=== PATIENT | male | born 1960 | race American Indian/Alaskan Native ===

== ENCOUNTER 2017-06-22 00:15 | Emergency (ER) | payer MEDICARE, MEDICAID ==
[2017-06-22 00:52] VITALS: BP 188/96
--- NOTE | 2017-06-22 01:28 | EDM.PDOC ---
ED HPI GENERAL MEDICAL PROBLEM - General Chief Complaint: Lower Extremity Injury/Pain Stated Complaint: RT KNEE SWOLLEN / NO INJURY Time Seen by Provider: 06/22/17 01:00 Source of Information: Reports: Patient History Limitations: Reports: No Limitations - History of Present Illness INITIAL COMMENTS - FREE TEXT/NARRATIVE: 57-year-old male with rheumatoid arthritis has an acute flare of his right knee for the past 48 hours. He is getting a lot of company for the hols and is interested in pain control for the next several days. He has no redness or fever. He is on 2.5 mg of prednisone daily and is scheduled for a consultation to start Remicade in 3 days. No specific injury. He has not had a prescription for narcotic medication in the past year. Tramadol has worked well for him in the past. Onset: Gradual (Over the past 48 hours) Severity: Moderate Associated Symptoms: Reports: No Other Symptoms Right Knee Pain Score (Numeric/FACES): 10 - Related Data Allergies Allergy/AdvReac Type Severity Reaction Status Date / Time No Known Allergies Allergy Verified 02/12/16 05:33 Home Meds: Home Meds Lisinopril [Lisinopril] 20 mg PO DAILY 06/22/17 [History] predniSONE [Prednisone] 2.5 mg PO DAILY 06/22/17 [History] Past Medical History Cardiovascular History: Reports: Hypertension Musculoskeletal History: Reports: RA Psychiatric History: Reports: Panic Attack - Past Surgical History GI Surgical History: Reports: Cholecystectomy Social & Family History - Tobacco Use Smoking Status *Q: Heavy Tobacco Smoker Years of Tobacco use: 30 Packs/Tins Daily: 0.5 Used Tobacco, but Quit: No Second Hand Smoke Exposure: No - Caffeine Use Caffeine Use: Reports: Coffee - Alcohol Use Days Per Week of Alcohol Use: 0 - Recreational Drug Use Recreational Drug Use: No Drug Use in Last 12 Months: Yes Recreational Drug Type: Reports: Marijuana/Hashish Recreational Drug Use Frequency: Weekly Recreational Drug Last Use: today 1800, had tramadol Review of Systems - Review of Systems Review Of Systems: See Below Constitutional: Denies: Fever Respiratory: Denies: Shortness of Breath, Cough Cardiovascular: Denies: Chest Pain Skin: Reports: No Symptoms Neurological: Reports: No Symptoms ED EXAM, GENERAL - Physical Exam Exam: See Below Exam Limited By: No Limitations General Appearance: Alert, No Apparent Distress Respiratory/Chest: No Respiratory Distress, Lungs Clear Extremities: Other (Patient has a significant effusion in the right knee. There is some tenderness to palpation along the medial and lateral joint lines and limitation of flexion of the knee. The joint is not red, warm, or inflamed) Neurological: Alert, Oriented Skin Exam: Warm, Dry Course - Vital Signs Last Recorded V/S: Last Vital Signs Temp 98.4 F 06/22/17 00:52 Pulse 83 06/22/17 00:52 Resp 18 06/22/17 00:52 BP 188/96 H 06/22/17 00:52 Pulse Ox 96 06/22/17 00:52 - Re-Assessments/Exams Free Text/Narrative Re-Assessment/Exam: 06/22/17 01:26 I offered the patient needle decompression of the joint space, he declined at this time but will return in 2-3 days if it's not responding to conservative therapy. He'll be placed on 40 mg of prednisone daily and given 30 tramadol to take through the next week. A six-inch Arnold wrap was applied around the knee. Departure - Departure Time of Disposition: 01:35 Disposition: Home, Self-Care 01 Condition: Good Clinical Impression: Effusion of knee joint right, Rheumatoid arthritis flare - Discharge Information Instructions: Knee Effusion, [id number] Referrals: PCP,None [Primary Care Provider] - Forms: ED Department Discharge Care Plan Goals: Take 40 mg of prednisone with your morning meal for the next 4-6 days. Use tramadol for extra pain control as prescribed and recheck in 2-3 days if not improving satisfactorily.
== END 2017-06-22 01:35 | disposition home or self-care (01) ==
LOC: JP.ED 00:15
DX: M06.861 Other specified rheumatoid arthritis, right knee (principal); M25.461 Effusion, right knee; I10 Essential (primary) hypertension; F17.210 Nicotine dependence, cigarettes, uncomplicated; Z79.899 Other long term (current) drug therapy
CPT/HCPCS: 99283

== ENCOUNTER 2018-04-02 14:35 | Emergency (ER) | payer MEDICARE, MEDICAID ==
--- NOTE | 2018-04-02 15:13 | EDM.PDOC ---
ED HPI GENERAL MEDICAL PROBLEM - General Chief Complaint: General Stated Complaint: VIA [facility] Time Seen by Provider: 04/02/18 14:45 Source of Information: Reports: Patient, EMS, Family History Limitations: Reports: No Limitations - History of Present Illness INITIAL COMMENTS - FREE TEXT/NARRATIVE: 57-year-old male with chronic rheumatoid arthritis or takes a large amount of Tylenol and ibuprofen has had biliary emesis for the past 2 days, epigastric pain, and had a syncopal episode this morning. He was taken into the local clinic where he was found to be jaundiced and had elevated liver enzymes so was transferred here. He's been given 1 L of fluid. He does not take illicit drugs or drink alcohol. He has some mild epigastric and upper abdominal pain but no other symptoms other than lightheadedness and fatigue, he feels like everything is moving "in slow motion". Onset: Gradual (Over the past 3-4 days) Severity: Moderate Associated Symptoms: Reports: Loss of Appetite, Malaise, Nausea/Vomiting, Weakness. Denies: Confusion, Chest Pain, Cough - Related Data Allergies Allergy/AdvReac Type Severity Reaction Status Date / Time No Known Allergies Allergy Verified 04/02/18 15:05 Home Meds: Home Meds NK [No Known Home Meds] 04/02/18 [History] Past Medical History Cardiovascular History: Reports: Hypertension Gastrointestinal History: Reports: GI Bleed, PUD Musculoskeletal History: Reports: RA Psychiatric History: Reports: Panic Attack - Past Surgical History GI Surgical History: Reports: Cholecystectomy Social & Family History - Tobacco Use Smoking Status *Q: Light Tobacco Smoker Years of Tobacco use: 33 Packs/Tins Daily: 0.5 - Caffeine Use Caffeine Use: Reports: Coffee - Recreational Drug Use Recreational Drug Use: Yes Recreational Drug Type: Reports: Marijuana/Hashish Recreational Drug Use Frequency: Daily ED ROS GENERAL - Review of Systems Review Of Systems: See Below Constitutional: Reports: Chills, Malaise, Weakness, Decreased Appetite. Denies : Fever HEENT: Reports: Other (Jaundiced eyes) Respiratory: Denies: Shortness of Breath, Cough Cardiovascular: Denies: Chest Pain GI/Abdominal: Reports: Abdominal Pain, Nausea, Vomiting : Reports: Other (Urine is dark). Denies: Dysuria, Frequency Skin: Reports: Jaundice Neurological: Reports: Dizziness, Weakness. Denies: Headache Psychiatric: Reports: No Symptoms ED EXAM, GENERAL - Physical Exam Exam: See Below Exam Limited By: No Limitations General Appearance: Alert, No Apparent Distress Eye Exam: Bilateral Eye: EOMI, Other (Significant bilateral scleral icterus) Head: Atraumatic Neck: Normal Inspection Respiratory/Chest: No Respiratory Distress, Lungs Clear Cardiovascular: Regular Rate, Rhythm GI/Abdominal: Soft, Tender (He does react with tenderness to palpation across the upper abdomen, especially the right side) Extremities: Other (He has a little bit of joint swelling from his chronic rheumatoid arthritis, no significant deformities). No: Pedal Edema Neurological: Alert, Oriented Psychiatric: Normal Affect, Normal Mood Skin Exam: Other (Jaundice) Course - Vital Signs Last Recorded V/S: Last Vital Signs Temp 97.8 F 04/02/18 17:29 Pulse 75 04/02/18 17:29 Resp 16 04/02/18 17:29 BP 153/75 H 04/02/18 17:29 Pulse Ox 96 04/02/18 17:29 - Orders/Labs/Meds Labs: Laboratory Tests 04/02/18 04/02/18 04/02/18 Range/Units 15:03 15:03 15:59 Total Bilirubin 6.3 H D (0.2-1.0) mg/dL Direct Bilirubin 5.27 H (0.0-0.2) mg/dL Amylase 29 D (25-115) U/L Lipase 73 (73-393) U/L Acetaminophen < 2.0 L (10.0-30.0) ug/mL Meds: Medications Discontinued Medications Generic Name Dose Route Start Last Admin Trade Name Aidenq PRN Reason Stop Dose Admin Sodium Chloride 80 mls @ 3.5 mls/sec 04/02/18 15:29 04/02/18 15:48 Normal Saline IV 04/02/18 15:30 3.5 mls/sec ONETIME ONE Administration Iopamidol 150 ml 04/02/18 15:30 04/02/18 15:47 Isovue-300 (61%) IV 132 ml . DIRECTED DUNCAN Administration Sodium Chloride 10 ml 04/02/18 15:29 04/02/18 16:14 Saline Flush FLUSH 04/02/18 15:30 10 ml ONETIME ONE Administration - Re-Assessments/Exams Free Text/Narrative Re-Assessment/Exam: 04/02/18 15:12 Labs were reviewed from the outside clinic, his AST and ALT are significantly elevated as well as his bilirubin. Lipase and amylase were not obtained nor was an acetaminophen level. Those were drawn. He thinks his gallbladder has been removed, so we will proceed with a CT scan with IV contrast initially. 04/02/18 15:57 Acetaminophen level is 0, amylase and lipase are negative. CT scan does not show any acute findings. There is a fatty liver present. I discussed the findings with the hospitalist service in [place] at [place], and Dr. Lee kindly accepted the patient for further evaluation and treatment. Patient will be taken by private car Departure - Departure Time of Disposition: 17:59 Disposition: DC/Tfer to Other 70 Condition: Fair Clinical Impression: Hepatitis, Jaundice Syncope Qualifiers: Syncope type: vasovagal syncope Qualified Code(s): R55 - Syncope and collapse - Discharge Information Instructions: Jaundice, Adult Referrals: PCP,None [Primary Care Provider] - Forms: ED Department Discharge Care Plan Goals: Patient will go directly to [facility] for admission for further workup for jaundice, hepatitis or possibly obstructive hyperbilirubinemia.
[2018-04-02] MEDS: Iopamidol 612 MG/ML 150 ML Bottle IV SCH (15:47)
[2018-04-02] MEDS: Sodium Chloride 0.9% 80 ML IV ONE (15:48)
[2018-04-02] MEDS: Sodium Chloride 0.9% 10 ML Syringe FLUSH ONE (16:14)
[2018-04-02 17:29] VITALS: BP 153/75
== END 2018-04-02 17:59 | disposition other institution (70) ==
LOC: JP.ED 14:35
DX: K75.9 Inflammatory liver disease, unspecified (principal); R55 Syncope and collapse; F17.210 Nicotine dependence, cigarettes, uncomplicated; I10 Essential (primary) hypertension
CPT/HCPCS: 36415; 74177; 82150; 82247; 82248; 83690; 99285; G0480; J7030; J7050

== ENCOUNTER 2018-09-12 15:36 | Emergency (ER) | payer MEDICARE, MEDICAID ==
[2018-09-12 16:07] VITALS: BP 188/104
--- NOTE | 2018-09-12 16:25 | EDM.PDOC ---
ED HPI GENERAL MEDICAL PROBLEM - General Chief Complaint: Lower Extremity Injury/Pain Stated Complaint: SCHRADER BITE 08/24 Time Seen by Provider: 09/12/18 16:19 Source of Information: Reports: Patient History Limitations: Reports: No Limitations - History of Present Illness INITIAL COMMENTS - FREE TEXT/NARRATIVE: pt got frostbite on the Aug. He has not seen a Dr since that time. He has had increased pain in the last 2 nite. Onset: Gradual Duration: Day(s): Location: Reports: Lower Extremity, Left, Lower Extremity, Right Associated Symptoms: Reports: No Other Symptoms (0) - Related Data Allergies Allergy/AdvReac Type Severity Reaction Status Date / Time No Known Allergies Allergy Verified 09/12/18 16:12 Home Meds: Home Meds NK [No Known Home Meds] 04/02/18 [History] Past Medical History Cardiovascular History: Reports: Hypertension Gastrointestinal History: Reports: GI Bleed, PUD Musculoskeletal History: Reports: RA Psychiatric History: Reports: Panic Attack - Past Surgical History GI Surgical History: Reports: Cholecystectomy Social & Family History - Tobacco Use Smoking Status *Q: Current Every Day Smoker Years of Tobacco use: 20 Packs/Tins Daily: 0.2 - Caffeine Use Caffeine Use: Reports: Coffee Review of Systems - Review of Systems Review Of Systems: See Below Constitutional: Reports: No Symptoms Eyes: Reports: No Symptoms Ears: Reports: No Symptoms Nose: Reports: No Symptoms Mouth/Throat: Reports: No Symptoms Respiratory: Reports: No Symptoms Cardiovascular: Reports: No Symptoms GI/Abdominal: Reports: No Symptoms Genitourinary: Reports: No Symptoms Musculoskeletal: Reports: Other (pt has frostbite to both feet. There is slight drainabe from the great toes. ) ED EXAM, GENERAL - Physical Exam Exam: See Below Free Text/Narrative:: pt got schrader bite on Aug 24. He has not seen a DR since that time. He now notes the toes are getting dark great and 2nd toe. This is occuring on both feet. The pain in the feet are much greater. Exam Limited By: No Limitations General Appearance: Alert, Anxious, Moderate Distress Ears: Normal External Exam Nose: Normal Inspection Throat/Mouth: Normal Inspection Head: Atraumatic Neck: Normal Inspection Respiratory/Chest: No Respiratory Distress Cardiovascular: Regular Rate, Rhythm GI/Abdominal: Soft, Non-Tender (Male) Exam: Deferred Rectal (Males) Exam: Deferred Back Exam: Normal Inspection Extremities: Other (pt has a dark toe on the left,great toe and the second toe. On the left she has a black toe 2nd and third and the great toe) Neurological: Alert, Oriented, Normal Cognition Psychiatric: Anxious Course - Vital Signs Last Recorded V/S: Last Vital Signs Temp 35.9 C 09/12/18 16:16 Pulse 80 09/12/18 16:16 Resp 16 09/12/18 16:16 BP 188/104 H 09/12/18 16:16 Pulse Ox 98 09/12/18 16:16 - Orders/Labs/Meds Labs: Laboratory Tests 09/12/18 09/12/18 Range/Units 16:25 16:25 WBC 7.2 (4.5-11.0) K/uL RBC 4.88 (4.30-5.90) M/uL Hgb 14.0 (12.0-15.0) g/dL Hct 42.9 (40.0-54.0) % MCV 88 (80-98) fL MCH 29 (27-31) pg MCHC 33 (32-36) % Plt Count 320 (150-400) K/uL Neut % (Auto) 72 H (36-66) % Lymph % (Auto) 21 L (24-44) % [place] % (Auto) 6 (2-6) % Eos % (Auto) 1 L (2-4) % Baso % (Auto) 0 (0-1) % Sodium 140 (140-148) mmol/L Potassium 3.8 (3.6-5.2) mmol/L Chloride 104 (100-108) mmol/L Carbon Dioxide 27 (21-32) mmol/L Anion Gap 8.7 (5.0-14.0) mmol/L BUN 11 (7-18) mg/dL Creatinine 0.9 (0.8-1.3) mg/dL Est Cr Clr Drug Dosing 96.12 mL/min Estimated GFR (MDRD) > 60 (>60) Glucose 95 (74-106) mg/dL Calcium 8.9 (8.5-10.1) mg/dL Total Bilirubin 0.5 D (0.2-1.0) mg/dL AST 20 (15-37) U/L ALT 35 (12-78) U/L Alkaline Phosphatase 119 H (46-116) U/L Total Protein 7.6 (6.4-8.2) g/dL Albumin 3.5 (3.4-5.0) g/dL Globulin 4.1 H (2.3-3.5) g/dL Albumin/Globulin Ratio 0.9 L (1.2-2.2) Meds: Medications Discontinued Medications Generic Name Dose Route Start Last Admin Trade Name Arash PRN Reason Stop Dose Admin Oxycodone/Acetaminophen 1 tab 09/12/18 16:35 09/12/18 16:45 Percocet 325-5 Mg PO 09/12/18 16:36 1 tab ONETIME ONE Administration - Re-Assessments/Exams Free Text/Narrative Re-Assessment/Exam: 09/12/18 17:20 Dr Patel was consulted and he felt they should be allowed to demarcate. He will see him next week in the clinic. He had lab work that looked good. Departure - Departure Time of Disposition: 17:13 Disposition: Home, Self-Care 01 Condition: Fair Clinical Impression: Frostbite of both feet - Discharge Information Referrals: Belia Calle I, [facility] [Primary Care Provider] - Forms: ED Department Discharge Care Plan Goals: clean feet daily and dry well. Wrap with dry gauze, use soft socks and if shoes are worn they should be open or loose, naprosyn 500mg bid, for severe pain particularly at nite norco 5/325 q6h # 10.
[2018-09-12] MEDS ORDERED: Acetaminophen/oxyCODONE 325-5 MG Tab PO ONE (16:35)
== END 2018-09-12 17:36 | disposition home or self-care (01) ==
LOC: JP.ED 15:36
DX: T33.822A Superficial frostbite of left foot, initial encounter (principal); T33.821A Superficial frostbite of right foot, initial encounter; F17.210 Nicotine dependence, cigarettes, uncomplicated; I10 Essential (primary) hypertension
CPT/HCPCS: 36415; 80053; 85025; 99283; A9270; 99284

== ENCOUNTER 2019-06-03 21:38 | Emergency (ER) | payer MEDICARE, MEDICAID ==
[2019-06-03] MEDS ORDERED: HYDROmorphone 0.5 MG/0.5 ML Syringe IVPUSH ONE (21:46)
[2019-06-03] MEDS: Sodium Chloride 0.9% 10 ML Syringe FLUSH PRN ×2 (21:50→23:19)
[2019-06-03] MEDS ORDERED: Alum Hydrox/Mag Hydrox/Simeth 15 ML, Lidocaine 2% 15 ML PO ONE ×2 (22:40)
--- NOTE | 2019-06-03 22:42 | CRLCR ---
INDICATION: chest pain TECHNIQUE: Chest 1 view. COMPARISON: 02/12/16 FINDINGS: Cardiovascular and mediastinum: Heart size and vasculature are normal in caliber and appearance. Mediastinum is within normal limits. Lungs and pleural space: Lungs are clear. No sign of infiltrate or mass. No sign of pleural effusion. No pneumothorax. Bones and soft tissues: No significant findings. IMPRESSION: Unremarkable chest. Dictated by: Sp Way MD @ 06/03/2019 22:40:28 (Electronically Signed)
[2019-06-03 23:00] VITALS: BP 161/101; PULSE 51
--- NOTE | 2019-06-03 23:08 | EDM.PDOC ---
ED HPI GENERAL MEDICAL PROBLEM - General Chief Complaint: Chest Pain Stated Complaint: [facility] Time Seen by Provider: 06/03/19 23:08 Source of Information: Reports: Patient, EMS History Limitations: Reports: No Limitations - History of Present Illness INITIAL COMMENTS - FREE TEXT/NARRATIVE: pt arrived with pressure in his chest. He had the sensation that he needed to belch. The pt had asa and nitro in the ambulance and he had very little relief. Onset: Today, Other (pt states if he lays flat he feels acid coming up in his throat. ) Duration: Hour(s): Location: Reports: Chest, Abdomen Associated Symptoms: Reports: Nausea/Vomiting, Other (pt has felt like he needed to belch ) Treatments PHYSICS TUTOR: Reports: Aspirin, EKG, Nitroglycerin chest/epigastric Pain Score (Numeric/FACES): 8 - Related Data Allergies Allergy/AdvReac Type Severity Reaction Status Date / Time No Known Allergies Allergy Verified 06/03/19 21:44 Home Meds: Home Meds NK [No Known Home Meds] 04/02/18 [History] Past Medical History Cardiovascular History: Reports: Hypertension Gastrointestinal History: Reports: GI Bleed, PUD Musculoskeletal History: Reports: RA, Other (See Below) Other Musculoskeletal History: uses marijuana daily for RA Psychiatric History: Reports: Panic Attack - Past Surgical History GI Surgical History: Reports: Cholecystectomy Social & Family History - Tobacco Use Smoking Status *Q: Current Every Day Smoker Years of Tobacco use: 40 Packs/Tins Daily: 0.2 - Caffeine Use Caffeine Use: Reports: Coffee, Soda, Tea - Recreational Drug Use Recreational Drug Use: Yes Recreational Drug Type: Reports: Marijuana/Hashish Recreational Drug Use Frequency: Daily ED ROS GENERAL - Review of Systems Review Of Systems: See Below Constitutional: Reports: No Symptoms HEENT: Reports: No Symptoms Respiratory: Reports: No Symptoms Cardiovascular: Reports: Chest Pain Endocrine: Reports: No Symptoms GI/Abdominal: Reports: Abdominal Pain : Reports: No Symptoms Musculoskeletal: Reports: No Symptoms Skin: Reports: No Symptoms Neurological: Reports: No Symptoms Psychiatric: Reports: Anxiety ED EXAM, GENERAL - Physical Exam Exam: See Below Free Text/Narrative:: Pt arrived with chest pressure. He did have the sensation that he needed to belch. He had a Ekg which did not show changes from his old ekg. Exam Limited By: No Limitations General Appearance: Alert, Anxious, Moderate Distress, Other (pt was rating his pain at a 8. He had 2 sprays of nitro and he had asa in the ambulance without relief. ) Ears: Normal TMs Nose: Normal Inspection Throat/Mouth: Normal Inspection Head: Atraumatic Neck: Normal Inspection Respiratory/Chest: No Respiratory Distress Cardiovascular: Regular Rate, Rhythm, Other (Pt is having lower chest pain) GI/Abdominal: Soft, Non-Tender, Other (pt states when he does lie down particularly after eating he has the feeling of acid up in his throat. ) (Male) Exam: Deferred Rectal (Males) Exam: Deferred Back Exam: Normal Inspection Extremities: Normal Inspection Neurological: Alert, Oriented, Normal Cognition Course - Vital Signs Last Recorded V/S: Last Vital Signs Temp 36.2 C 06/03/19 21:38 Pulse 51 L 06/03/19 22:59 Resp 17 06/03/19 22:59 BP 161/101 H 06/03/19 22:59 Pulse Ox 96 06/03/19 22:59 - Orders/Labs/Meds Orders: Active Orders 24 hr Category Date Time Status EKG Documentation Completion [RC] ASDIRECTED Care 06/03/19 21:44 Active TROPONIN I [CHEM] Stat Lab 06/03/19 23:35 Received Sodium Chloride 0.9% [Saline Flush] Med 06/03/19 21:45 Active 10 ml FLUSH ASDIRECTED PRN Saline Lock Insert [OM.PC] Routine Oth 06/03/19 21:45 Ordered EKG 12 Lead [EK] Routine Ther 06/03/19 21:44 Ordered Medication Orders Sodium Chloride (Saline Flush) 10 ml FLUSH ASDIRECTED PRN PRN Reason: Keep Vein Open Last Admin: 06/03/19 23:19 Dose: 10 ml Admin: 06/03/19 21:50 Dose: 10 ml Labs: Laboratory Tests 06/03/19 06/03/19 06/03/19 Range/Units 21:45 21:45 21:45 WBC 6.3 (4.5-11.0) K/uL RBC 4.19 L (4.30-5.90) M/uL Hgb 12.2 (12.0-15.0) g/dL Hct 37.6 L (40.0-54.0) % MCV 90 (80-98) fL MCH 29 (27-31) pg MCHC 32 (32-36) % Plt Count 271 (150-400) K/uL Neut % (Auto) 54 (36-66) % Lymph % (Auto) 34 (24-44) % [place] % (Auto) 6 (2-6) % Eos % (Auto) 5 H (2-4) % Baso % (Auto) 1 (0-1) % Sodium 138 L (140-148) mmol/L Potassium 3.5 L (3.6-5.2) mmol/L Chloride 103 (100-108) mmol/L Carbon Dioxide 24 (21-32) mmol/L Anion Gap 14.5 H (5.0-14.0) mmol/L BUN 13 (7-18) mg/dL Creatinine 1.0 (0.8-1.3) mg/dL Est Cr Clr Drug Dosing 85.17 mL/min Estimated GFR (MDRD) > 60 (>60) Glucose 133 H (74-106) mg/dL Calcium 8.4 L (8.5-10.1) mg/dL Total Bilirubin 0.2 D (0.2-1.0) mg/dL AST 20 (15-37) U/L ALT 26 (12-78) U/L Alkaline Phosphatase 79 (46-116) U/L Troponin I < 0.017 (0.000-0.056) ng/mL Total Protein 7.8 (6.4-8.2) g/dL Albumin 3.5 (3.4-5.0) g/dL Globulin 4.3 H (2.3-3.5) g/dL Albumin/Globulin Ratio 0.8 L (1.2-2.2) Amylase 57 D (25-115) U/L Lipase 111 (73-393) U/L Urine Color (YELLOW) Urine Appearance (CLEAR) Urine pH (5.0-8.0) Ur Specific [place] (1.008-1.030) Urine Protein (NEGATIVE) mg/dL Urine Glucose (UA) (NEGATIVE) mg/dL Urine Ketones (NEGATIVE) mg/dL Urine Occult Blood (NEGATIVE) Urine Nitrite (NEGATIVE) Urine Bilirubin (NEGATIVE) Urine Urobilinogen (0.2-1.0) EU/dL Ur Leukocyte Esterase (NEGATIVE) Urine RBC (0-5) Urine WBC (0-5) Ur Epithelial Cells Amorphous Sediment Urine Bacteria Urine Mucus 06/03/19 Range/Units 22:00 WBC (4.5-11.0) K/uL RBC (4.30-5.90) M/uL Hgb (12.0-15.0) g/dL Hct (40.0-54.0) % MCV (80-98) fL MCH (27-31) pg MCHC (32-36) % Plt Count (150-400) K/uL Neut % (Auto) (36-66) % Lymph % (Auto) (24-44) % [place] % (Auto) (2-6) % Eos % (Auto) (2-4) % Baso % (Auto) (0-1) % Sodium (140-148) mmol/L Potassium (3.6-5.2) mmol/L Chloride (100-108) mmol/L Carbon Dioxide (21-32) mmol/L Anion Gap (5.0-14.0) mmol/L BUN (7-18) mg/dL Creatinine (0.8-1.3) mg/dL Est Cr Clr Drug Dosing mL/min Estimated GFR (MDRD) (>60) Glucose (74-106) mg/dL Calcium (8.5-10.1) mg/dL Total Bilirubin (0.2-1.0) mg/dL AST (15-37) U/L ALT (12-78) U/L Alkaline Phosphatase (46-116) U/L Troponin I (0.000-0.056) ng/mL Total Protein (6.4-8.2) g/dL Albumin (3.4-5.0) g/dL Globulin (2.3-3.5) g/dL Albumin/Globulin Ratio (1.2-2.2) Amylase (25-115) U/L Lipase (73-393) U/L Urine Color [place] A (YELLOW) Urine Appearance Clear (CLEAR) Urine pH 6.0 (5.0-8.0) Ur Specific [place] >= 1.030 (1.008-1.030) Urine Protein Negative (NEGATIVE) mg/dL Urine Glucose (UA) Negative (NEGATIVE) mg/dL Urine Ketones Negative (NEGATIVE) mg/dL Urine Occult Blood Negative (NEGATIVE) Urine Nitrite Negative (NEGATIVE) Urine Bilirubin Negative (NEGATIVE) Urine Urobilinogen 0.2 (0.2-1.0) EU/dL Ur Leukocyte Esterase Negative (NEGATIVE) Urine RBC Not seen (0-5) Urine WBC 0-5 (0-5) Ur Epithelial Cells Not seen Amorphous Sediment Few Urine Bacteria Not seen Urine Mucus Not seen Meds: Medications Generic Name Dose Route Start Last Admin Trade Name Arash PRN Reason Stop Dose Admin Sodium Chloride 10 ml 06/03/19 21:45 06/03/19 23:19 Saline Flush FLUSH 10 ml ASDIRECTED PRN Administration Keep Vein Open Discontinued Medications Generic Name Dose Route Start Last Admin Trade Name Freq PRN Reason Stop Dose Admin Al Hydroxide/Mg Hydroxide 15 0 ml 06/03/19 22:40 06/03/19 22:49 ml/ Lidocaine HCl 15 ml PO 06/03/19 22:41 30 ml ONETIME ONE Administration Hydromorphone HCl 0.5 mg 06/03/19 21:46 06/03/19 21:50 Dilaudid IVPUSH 06/03/19 21:47 0.5 mg ONETIME ONE Administration Pantoprazole Sodium 40 mg 06/03/19 23:09 06/03/19 23:18 Protonix Iv IVPUSH 06/03/19 23:10 40 mg ONETIME ONE Administration - Re-Assessments/Exams Free Text/Narrative Re-Assessment/Exam: 06/04/19 00:02 pt had a normal trop. His ekg was not changed from the old ekg. He did describe quite vividly reflux. He was given a GI cocktail and he did get relief. He was given protonix 40 mg iv. Departure - Departure Time of Disposition: 00:04 Disposition: Home, Self-Care 01 Condition: Fair Clinical Impression: GERD with esophagitis Referrals: PCP,None [Primary Care Provider] - Forms: ED Department Discharge Care Plan Goals: push fluids, Prilosec 20mg bid for 1 week then 1 tab daily, use maalox 2 tblsp after each meal and at bedtime, See regular provider and consider a Gastroscope. - My Orders Last 24 Hours: My Active Orders 06/03/19 21:44 EKG Documentation Completion [RC] ASDIRECTED EKG 12 Lead [EK] Routine 06/03/19 21:45 Sodium Chloride 0.9% [Saline Flush] 10 ml FLUSH ASDIRECTED PRN Saline Lock Insert [OM.PC] Routine 06/03/19 23:35 TROPONIN I [CHEM] Stat - Assessment/Plan Last 24 Hours: My Active Orders 06/03/19 21:44 EKG Documentation Completion [RC] ASDIRECTED EKG 12 Lead [EK] Routine 06/03/19 21:45 Sodium Chloride 0.9% [Saline Flush] 10 ml FLUSH ASDIRECTED PRN Saline Lock Insert [OM.PC] Routine 06/03/19 23:35 TROPONIN I [CHEM] Stat
[2019-06-03] MEDS ORDERED: Pantoprazole 40 MG Vial IVPUSH ONE (23:09)
== END 2019-06-04 00:27 | disposition home or self-care (01) ==
LOC: JP.ED 21:38
DX: K21.0 Gastro-esophageal reflux disease with esophagitis (principal); F17.210 Nicotine dependence, cigarettes, uncomplicated; I10 Essential (primary) hypertension
CPT/HCPCS: 36415; 71045; 80053; 81001; 82150; 83690; 84484; 85025; 93005; 96374; 96375; 99285; A9270; C9113; J1170; 93010